=== PATIENT | female | born 1970 | race Native Hawaiian/Other Pacific Islander ===

== ENCOUNTER 2017-05-19 14:58 | Outpatient (CLI) | payer OTHER | END 2017-05-19 20:43 | disposition home or self-care (01) | LOC: MAMMO 14:58 | DX: N63.20 Unspecified lump in the left breast, unspecified quadrant (principal) ==

== ENCOUNTER 2021-03-20 10:56 | Outpatient (CLI) | payer OTHER | END 2021-03-20 19:22 | disposition home or self-care (01) | LOC: MAMMO 10:56 | PROVIDERS: ATTEND Internal Medicine | DX: R92.2 Inconclusive mammogram (principal) | CPT/HCPCS: G0279 ==

== ENCOUNTER 2022-07-03 15:32 | Outpatient (CLI) | payer OTHER | END 2022-07-03 19:35 | disposition home or self-care (01) | LOC: MAMMO 15:32 | PROVIDERS: ATTEND Internal Medicine | DX: Z12.31 Encounter for screening mammogram for malignant neoplasm of breast (principal) ==